=== PATIENT | female | born 1950 | race Two or more races ===

== ENCOUNTER → 2021-07-11 | Emergency (ER) | payer OTHER ==
[~2021-07-11] VITALS: Ht 160 cm; Wt 68.0 kg
[~2021-07-11] MED LIST: DIOVAN320 MG PO; ECOTRIN81 MG PO; ISOSORBIDE MONO60 MG PO; LIPITOR40 M1 PO; METFORMIN HCL1000 M1 PO; NORVASC10 MG PO; PLAVIX75 MG; TOPROL XL50 M1 PO
== END | disposition home or self-care (01) ==
LOC: ER 09:41 → CPU-OBS 10:56 → ER 10:56
DX: R07.89 Other chest pain (principal)